=== PATIENT | male | born 1980 | race African-American/Black ===

== ENCOUNTER 2017-08-19 16:40 | Emergency (ER) | payer MEDICAID, OTHER ==
[~2017-08-19] VITALS: Ht 172.7 cm; Wt 81.8 kg
[~2017-08-19 16:40] MED LIST: HYDR-3971 PO
[2017-08-19] MEDS ORDERED: MORPHINE SULFATE 4 MG/ML SYRINGE IVP ONE ×2 (17:30→20:00)
[2017-08-19] MEDS ORDERED: ONDANSETRON HCL 4 MG/2 ML VIAL IVP ONE ×2 (17:30→20:00)
[2017-08-19 18:59] VITALS: BP 133/86
[2017-08-19] MEDS ORDERED: AMOX TR/POT CLAV 875 MG/125 MG TABLET PO ONE (20:00)
== END 2017-08-19 20:21 | disposition home or self-care (01) ==
LOC: EMS 16:41
DX: S02.2XXA Fracture of nasal bones, initial encounter for closed fracture (principal); S02.40DA Maxillary fracture, left side, initial encounter for closed fracture; M19.90 Unspecified osteoarthritis, unspecified site; F17.210 Nicotine dependence, cigarettes, uncomplicated; W50.0XXA Accidental hit or strike by another person, initial encounter; Y93.89 Activity, other specified; Y92.89 Other specified places as the place of occurrence of the external cause; Y99.8 Other external cause status
CPT/HCPCS: 70450; 70486; 96374; 96375; 96376; 99284; 99406; J2270; J2405